=== PATIENT | male | born 1960 | race Caucasian/White ===

== ENCOUNTER → 2016-05-31 | Outpatient (CLI) | payer OTHER ==
--- NOTE | 2016-05-31 11:18 | REP ---
CERVICAL SPINE, SEVEN VIEWS: HISTORY: Spondylosis. There is no acute fracture. The C3-4 through C6-7 intervertebral discs are decreased in height consistent with disc degeneration. Bridging osteophytes are present from C3-7. There is narrowing of the C5 neural foramina secondary to uncinate process hypertrophy. There are 2 mm of anterior subluxation of C5 on 6. This increases to 4 mm with flexion and reduces with extension. There are 2 mm of anterior subluxation of C6 on 7. This is unchanged with flexion and extension. There are 2 mm of anterior subluxation of C2 on 3 and C3 on 4 with flexion. This is not seen in neutral or extension radiographs. IMPRESSION: Degenerative change as described above. Signed by Esequiel Peguero MD 05/31/2016 12:03 P
--- NOTE | 2016-05-31 11:55 | REP ---
LUMBAR SPINE, SEVEN VIEWS: HISTORY: Spondylosis. There is no acute fracture or subluxation. The intervertebral discs are decreased in height consistent with disc degeneration. Osteophytes are present throughout the lumbar spine. There is narrowing of the L5-S1 facet joints. IMPRESSION: Degenerative change as described above. Signed by Esequiel Peguero MD 05/31/2016 12:04 P
== END ==
LOC: M RAD 09:57
PROVIDERS: ATTEND Neurological Surgery
DX: M47.892 Other spondylosis, cervical region (principal); M47.896 Other spondylosis, lumbar region; M50.90 Cervical disc disorder, unspecified, unspecified cervical region